=== PATIENT | female | born 1975 | race Caucasian/White ===

== ENCOUNTER 2020-03-02 16:36 | Emergency (ER) | payer OTHER, SELFPAY ==
--- NOTE | 2020-03-02 16:46 | ED.EAR ---
HPI - Ear Problem General Chief complaint: Ear Stated complaint: ear pain Time Seen by Provider: 03/02/20 16:47 Source: patient and RN notes reviewed History of Present Illness HPI Narrative: Patient is a 44-year-old female who presents the urgent care with complaints of left ear pain. Patient states that it started today and she has taken Aleve, Tylenol and use warm compress. Patient states she also has some ringing in the ears and has been doing a lot of swimming recently. Denies of any fever or other upper respiratory symptoms. No other acute complaints. No acute distress noted. Patient aware of the plan of care. Related Data Home Medications Medication Instructions Recorded Confirmed clonazepam [Klonopin] 0.5 mg PO DAILY 03/02/20 03/02/20 escitalopram oxalate [Lexapro] 20 mg PO DAILY 03/02/20 03/02/20 Allergies Allergy/AdvReac Type Severity Reaction Status Date / Time minocycline Allergy Unknown Unknown Verified 03/02/20 16:54 No Known Allergies Allergy Unknown Uncoded 03/02/20 16:54 Review of Systems Review of Systems: Narrative: CONSTITUTIONAL: Denies fever, chills, or sweats. EYES: Denies visual changes, redness, or discharge. ENT: Reports of left ear pain and ringing in the ear CARDIOVASCULAR: Denies chest pain, palpitations, or edema. RESPIRATORY: Denies cough or dyspnea. GASTROINTESTINAL: Denies abdominal pain, nausea, vomiting, or diarrhea. GENITOURINARY: Denies dysuria or hematuria. SKIN: Denies rash or itching. MUSCULOSKELETAL: Denies back pain, joint pain, or myalgia. NEUROLOGIC: Denies headache, numbness, or weakness. All other systems reviewed are negative, except as documented in HPI. [facility] Past Medical History Medical History (Updated 03/02/20 @ 17:00 by ORLANDO Sanchez) Anxiety Bronchitis Colitis Kidney stones Surgical History Surgical History (Updated 08/04/19 @ 02:20 by Rosario Clinton) History of appendectomy History of arthroscopic knee surgery Right ACL History of section History of cholecystectomy History of endometrial ablation History of surgical removal of pilonidal cyst History of tonsillectomy History of tubal ligation Social History Social History (Updated 08/04/19 @ 02:21 by Rosario Clinton) Smoking packs per day: 1 Smoking cigarettes per day: 20.0 Years smoked: 25 Smoking pack-years: 25.00 Smoking status: Current every day smoker Alcohol intake: never Gender identity (if verbalized by the patient): Female Comments At the time of my signature, I reviewed and agree with the nursing past medical, surgical, social, and family history. There is no relevant family history pertinent to the patient complaint. Exam Narrative: Exam Narrative: GENERAL: This is a well-nourished, well-developed patient, in no apparent distress. HEAD: normocephalic, atraumatic. EYES: PERRL. Sclera clear/white. Vision is grossly intact. EARS: External ears normal, auditory canals clear and without drainage, mild fluid noted behind left TM without otitis, right TMs normal without perforation. Hearing grossly intact. NOSE: External nose normal with no obvious nasal discharge, nares without redness, no rhinorrhea. THROAT: Mucous membranes moist NECK: Neck supple SKIN: warm, intact with no suspicious lesions or rash, good texture and turgor. NEURO: awake, alert, and oriented to person, place and time. There were no obvious focal neurologic abnormalities. EXTREMITIES: No clubbing, cyanosis, or edema. Course Vital Signs Vital signs: Vital Signs Temperature 99.3 F 03/02/20 16:51 Pulse Rate 73 03/02/20 16:51 Respiratory Rate 16 03/02/20 16:51 Blood Pressure 106/58 L 03/02/20 16:51 Pulse Oximetry 98 03/02/20 16:51 Temperature 99.3 F 03/02/20 16:51 Pulse Rate 73 03/02/20 16:51 Respiratory Rate 16 03/02/20 16:51 Blood Pressure 106/58 L 03/02/20 16:51 Pulse Oximetry 98 03/02/20 16:51 Reviewed Medical Decision Making MDM Narrati
[2020-03-02 16:51] VITALS: BP 106/58; PULSE 73; RESP 16; TEMP 37.4; O2SAT 98
== END 2020-03-02 17:04 | disposition home or self-care (01) ==
PROVIDERS: Emergency Provider Nurse Practitioner Family; PCP Physician Assistant
DX: H92.02 Otalgia, left ear (principal); F17.210 Nicotine dependence, cigarettes, uncomplicated
CPT/HCPCS: 99211; 99212; G0463

== ENCOUNTER 2021-08-10 15:36 | Outpatient (CLI) | payer OTHER, SELFPAY ==
--- NOTE | ~2021-08-10 | XR_ITS ---
EXAMINATION: XR chest 2V DATE: 08/10/2021 15:53 INDICATION: Congestion of upper respiratory tract. TECHNIQUE: Frontal and lateral views of the chest were obtained. COMPARISON: Chest 2 views 05/29/2012, CT abdomen and pelvis 06/04/2019 FINDINGS: The chest demonstrates clear lungs without pneumonia, pleural effusion, or pneumothorax. Th e heart size is normal. IMPRESSION: 1. No acute cardiopulmonary disease. Reviewed, dictated and finalized at location [facility]. [facility] [employer]
== END 2021-08-10 15:37 | disposition home or self-care (01) ==
LOC: ANHIMG 15:40
PROVIDERS: PCP Physician Assistant; Visit Provider Physician Assistant
DX: J39.8 Other specified diseases of upper respiratory tract (principal)
CPT/HCPCS: 71046

== ENCOUNTER 2023-01-24 06:50 | Emergency (ER) | payer OTHER, SELFPAY ==
--- NOTE | ~2023-01-24 | CT_ITS ---
EXAMINATION: CT abdomen pelvis w con INDICATION: Left flank pain, elevated lipase TECHNIQUE: Computed tomographic images of the abdomen and pelvis were obtained after the administrati on of 100 cc of Omnipaque 350 intravenous contrast. The dose-length product (DLP) was 1547.35 mGy-cm. Automated exposure control and iterative reconstruction technique were employed. COMPARISON: 08/04/2019 FINDINGS: Minimal dependent atelectasis is present in the lung bases. The heart size is normal. The l iver is diffusely low in attenuation when compared with the spleen, consistent with hepatic steatosis . Hepatomegaly is noted. The gallbladder is surgically absent. The spleen, pancreas, and adrenal glan ds are normal. There is a 4 mm nonobstructing stone of the left kidney lower pole. The right kidney i s unremarkable. No stones are identified in the ureters or bladder. No hydronephrosis or hydroureter. There is calcified atherosclerosis of the aorta and many of the other arteries. No pathologically en larged abdominal or pelvic lymph nodes are identified. No free intraperitoneal gas or evidence of bow el obstruction. IMPRESSION: 1. No CT correlate for the patient's symptoms. 2. Diffuse hepatic steatosis] hepatomegaly. 3. Nonobstructing left nephrolithiasis. Reviewed, dictated and finalized at location A.
[2023-01-24 06:53] VITALS: BP 149/73; PULSE 72; RESP 20; TEMP 36.4; O2SAT 100
[2023-01-24 07:25] LABS: Basophils Absolute Auto 0.1 K/mm3 (0.0-0.1); Basophils Percent Auto 0.6 % (0.2-1.2); Eosinophils Absolute Auto 0.2 K/mm3 (0-0.3); Eosinophils Percent Auto 2.2 % (0-4.4); Hematocrit 42.8 % (37.0-47.0); Immature Granulocyte Absolute 0.05 K/mm3 (0.00-0.031); Immature Granulocyte Percent A 0.5 % (0-0.5); Lymphocytes Absolute Auto 2.52 K/mm3 (0.9-3.2); Lymphocytes Percent Auto 24.9 % (18.3-44.2); Mean Corpuscular HGB Conc 32.7 g/dl (32-36); Mean Corpuscular Hemoglobin 31.2 pg (26-34); Mean Corpuscular Volume 95.3 fl (80-100); Mean Platelet Volume 10.2 fl (7.4-10.4); Monocytes Absolute Auto 0.5 K/mm3 (0.1-0.6); Monocytes Percent Auto 5.1 % (2.6-8.5); Neutrophils Absolute Auto 6.8 K/mm3 (1.3-6.7); Neutrophils Percent Auto 66.7 % (45.5-73.1); Platelet Count Result 349 k/mm3 (150-375); Red Blood Count 4.49 M/mm3 (4.2-5.4); White Blood Count 10.1 K/mm3 (4.5-10.0)
[2023-01-24] MEDS: LACTATED RINGERS 1,000 ML 999 ML IV CONT (07:29)
[2023-01-24] MEDS: ONDANSETRON INJ 4 MG/2 ML VIAL IV PUSH (07:30)
[2023-01-24] MEDS: HYDROmorphone HCL INJ (*CRX) 1 MG/ML SYR IV PUSH (07:31)
[2023-01-24 07:32] LABS: Alanine Aminotransferase 17 U/L (6-35); Albumin Level 4.1 g/dL (3.5-5.1); Alkaline Phosphatase 39 U/L (38-126); Anion Gap 6 mmol/L (8-16); Aspartate Amino Transferase 17 U/L (14-36); Bilirubin,Total 0.4 mg/dL (0.2-1.3); Blood Urea Nitrogen 12 mg/dL (7-17); Calcium 8.7 mg/dL (8.4-10.2); Carbon Dioxide 26 mmol/L (22-30); Chloride 109 mmol/L (98-107); Estimated CRCL calculation 102 ml/min; Estimated Glomerular Filt Rate > 60; Glucose 110 mg/dL (65-110); Lipase 359 U/L (23-300); Potassium 3.9 mmol/L (3.4-5.0); Sodium 141 mmol/L (137-145)
[2023-01-24 07:36] VITALS: BP 118/63; PULSE 68; RESP 16; O2SAT 98
[2023-01-24 07:37] LABS: Appearance Urine Clear (Clear); Bilirubin Urine Negative (Negative); Blood Urine Negative (Negative); Color Urine Yellow (Yellow); Glucose Urine UA Negative (Negative); Ketones Urine Negative (Negative); Leukocyte Esterase Ur Negative LEU/UL (Negative); Nitrate Urine Negative (Negative); Protein Urine Negative (Negative); Specific Grav Ur 1.017 (1.001-1.035); Urobilinogen Urine 0.2 mg/dL (<2.0); pH Urine 6.5 (5.0-9.0)
[2023-01-24 07:39] LABS: Add Urine Microscopic? NO
[2023-01-24 07:46] VITALS: BP 119/64; PULSE 63; RESP 14; O2SAT 98
--- NOTE | 2023-01-24 08:20 | ED.GENADULT ---
HPI - General Adult General Chief complaint: Urogenital-Female Stated complaint: I think I'm passing a kidney stone Time Seen by Provider: 01/24/23 07:00 Source: patient, RN notes reviewed and old records reviewed Mode of arrival: ambulatory Limitations: no limitations History of Present Illness HPI narrative: This is a 47 year old female with history of kidney stones who presents for evaluation of left flank pain. Patient reports having left back pain for 2 days and her pain worsened this morning. She reports her pain was intermittent. She has been taking ibuprofen for her pain but she has not taken any today. She denies associated nausea, vomiting, fever, chills, dysuria or hematuria. She rates her pain 8/10. She reports her pain has moved to her left flank. Related Data Home Medications Medication Instructions Recorded Confirmed clonazepam 0.5 mg tablet (Klonopin) 0.5 mg PO DAILY 03/02/20 03/02/20 escitalopram oxalate 20 mg tablet 20 mg PO DAILY 03/02/20 03/02/20 (Lexapro) Allergies Allergy/AdvReac Type Severity Reaction Status Date / Time minocycline Allergy Unknown Unknown Verified 03/02/20 16:54 No Known Allergies Allergy Unknown Uncoded 03/02/20 16:54 Review of Systems Constitutional: Constitutional: Denies weakness Cardiovascular: Cardiovascular: Denies syncope, Denies rapid heart rate, Denies irregular heart rhythm, Denies leg edema and Denies dyspnea Respiratory: Respiratory: Denies chest congestion, Denies hemoptysis, Denies excessive phlegm production and Denies dyspnea Gastrointestinal: Gastrointestinal: Denies abdominal pain, Denies hematochezia, Denies diarrhea and Denies vomiting Genitourinary: Genitourinary: Denies hematuria, Denies dysuria and Reports flank pain Musculoskeletal: Musculoskeletal: Reports back pain, Denies joint swelling, Denies loss of height and Denies muscle weakness Neurologic: Denies syncope, Denies focal weakness and Denies weakness PMFSH Past Medical History Medical History Anxiety Bronchitis Colitis Kidney stones Surgical History Surgical History History of appendectomy History of arthroscopic knee surgery Right ACL History of section History of cholecystectomy History of endometrial ablation History of surgical removal of pilonidal cyst History of tonsillectomy History of tubal ligation Family History Family History Father Family history of elevated blood lipids Mother Family history of elevated blood lipids Other Diabetes mellitus Family history of malignant neoplasm of skin Social History Social History Smoking packs per day: 1 Smoking cigarettes per day: 20.0 Years smoked: 25 Smoking pack-years: 25.00 Smoking status: Current every day smoker Alcohol intake: never Gender identity (if verbalized by the patient): Female Exam Const: General: alert Nutritional Appearance: well nourished and obese Orientation/consciousness: patient oriented x3 Limitations: no limitations HENMT: Head: normal to inspection Face and sinus: normal facial exam Eyes: EOM: EOMs intact bilaterally Neck: Neck: normal visual inspection Chest: Chest palpation & inspection: normal inspection of the chest Resp: Effort & Inspection: normal respiratory effort Auscultation: clear to auscultation bilaterally Cardio: Rate: regular rate Rhythm: regular rhythm Heart sounds: no murmurs GI: GI Palp: Yes Soft to palpation, Yes Tenderness to palpation present (GI) (LUQ), No Guarding due to palpation present (GI) and No Rigid due to palpation Auscultation: normal bowel sounds : General: Yes CVA tenderness Skin: General skin exam: normal color Rashes: no rashes Neuro: General: patient oriented x3, moves all extremities and CN's
[2023-01-24] MEDS: KETOROLAC 30 MG/ML VIAL (*BKC) IV PUSH (08:38)
[2023-01-24 09:00] VITALS: BP 108/50; PULSE 65; RESP 16; O2SAT 100
== END 2023-01-24 09:00 | disposition home or self-care (01) ==
PROVIDERS: Emergency Provider General Practice; PCP Physician Assistant
DX: N20.0 Calculus of kidney (principal); F41.9 Anxiety disorder, unspecified; F17.210 Nicotine dependence, cigarettes, uncomplicated; Z87.442 Personal history of urinary calculi; Z90.49 Acquired absence of other specified parts of digestive tract; K76.0 Fatty (change of) liver, not elsewhere classified
CPT/HCPCS: 36415; 74177; 80053; 81003; 81025; 83690; 85025; 96361; 96374; 96375; 99284; J1170; J1885; J2405; J7120; Q9967

== ENCOUNTER 2024-05-16 16:37 | Emergency (ER) | payer OTHER, SELFPAY ==
--- NOTE | 2024-05-16 16:52 | ED.ABDPAIN ---
HPI - Abdominal Pain General Chief Complaint: Urogenital-Female Stated Complaint: urinary issue Time Seen by Provider: 05/16/24 16:53 Source: patient, RN notes reviewed and old records reviewed Mode of arrival: ambulatory Limitations: no limitations History of Present Illness HPI narrative: Patient presents complaints of 2 days of urinary frequency and burning. She denies any back pain or abdominal pain. She denies any fever, chills, sweats. She does report that she has noticed some blood intermittently in the urine. Denies any injury or trauma, voices no other concerns or complaints at this time. Related Data Home Medications Medication Instructions Recorded Confirmed clonazepam 0.5 mg tablet (Klonopin) 0.5 mg PO DAILY 03/02/20 03/02/20 escitalopram oxalate 20 mg tablet 20 mg PO DAILY 03/02/20 03/02/20 (Lexapro) Allergies Allergy/AdvReac Type Severity Reaction Status Date / Time minocycline Allergy Unknown Unknown Verified 03/02/20 16:54 No Known Allergies Allergy Unknown Uncoded 03/02/20 16:54 Review of Systems Review of Systems: All systems reviewed & are unremarkable except as noted in HPI and below Constitutional: Constitutional: Reports no additional constitutional complaints ENT: Reports system reviewed and no additional complaints, except as documented Cardiovascular: Cardiovascular: Reports no additional cardiovascular complaints Respiratory: Respiratory: Reports no additional respiratory complaints Gastrointestinal: Gastrointestinal: Reports no additional gastrointestinal complaints Genitourinary: Genitourinary: Reports as per HPI, Reports urinary hesitancy and Reports urinary urgency PMFSH Past Medical History Medical History Anxiety Bronchitis Colitis Kidney stones Surgical History Surgical History History of appendectomy History of arthroscopic knee surgery Right ACL History of section History of cholecystectomy History of endometrial ablation History of surgical removal of pilonidal cyst History of tonsillectomy History of tubal ligation Family History Family History Father Family history of elevated blood lipids Mother Family history of elevated blood lipids Other Diabetes mellitus Family history of malignant neoplasm of skin Social History Social History Smoking packs per day: 1 Smoking cigarettes per day: 20.0 Years smoked: 25 Smoking pack-years: 25.00 Smoking status: Current every day smoker Alcohol intake: never Gender identity (if verbalized by the patient): Female Comments At the time of my signature, I reviewed and agree with the nursing past medical, surgical, social, and family history. There is no relevant family history pertinent to the patient complaint. Exam Const: General: cooperative, no acute distress, alert and awake Orientation/consciousness: oriented to person, oriented to place and oriented to time HENMT: Head: normal to inspection Resp: Effort & Inspection: normal respiratory effort and able to speak in complete sentences Auscultation: clear to auscultation bilaterally, no crackles, no rales, no rhonchi and no wheezes Cardio: Palpation: normal PMI Rate: regular rate Rhythm: regular rhythm Heart sounds: S1 normal heart sound present and S2 normal heart sound present : General: Yes bladder normal to palpation and Yes no CVA tenderness Neuro: General: oriented to person, oriented to place and oriented to time Cranial nerves: Yes CN's II-XII intact bilaterally Psych: Appearance: grossly normal Thought process: Normal thought process present Insight: Good insight present (Psych) Judgement: Good judgement present (Psych) Course Course Level of Care: Express Care Visit Vital Signs Vital s
[2024-05-16 17:08] LABS: EDUAAPPEAR Cloudy; EDUABILI Negative (Negative); EDUABLOOD 3+ (Negative); EDUACOLOR1 Amber; EDUAGLUCOSE Negative (Negative); EDUAKETONE Negative (Negative); EDUALEUKO 1+ (Negative); EDUANITRATE Positive (Negative); EDUAPROTEIN 2+ (Negative); EDUAUROBILI 0.2
== END 2024-05-16 17:33 | disposition home or self-care (01) ==
PROVIDERS: Emergency Provider Nurse Practitioner Family; PCP Physician Assistant
DX: N39.0 Urinary tract infection, site not specified (principal); B96.20 Unspecified Escherichia coli [E. coli] as the cause of diseases classified elsewhere; F17.210 Nicotine dependence, cigarettes, uncomplicated; F41.9 Anxiety disorder, unspecified
CPT/HCPCS: 81003; 87077; 87086; 87186; 99213; G0463